=== PATIENT | female | born 1965 | race African-American/Black ===

== ENCOUNTER 2018-02-26 10:17 | Observation (INO) ==
[2018-02-26] MEDS ORDERED: ASPIRIN 325 MG TABLET PO STA (11:33)
[2018-02-26] MEDS ORDERED: ENOXAPARIN 100 MG/ML SYRINGE SUBCUT STA (11:33)
[2018-02-26 12:02] LABS: Basophils # 0.1 10*3/uL (0.0-0.2); Basophils % 0.5 % (0.0-0.8); Eosinophils % 0.4 % (0.00-10.9); Hematocrit 46.7 VOL% (35.7-47.0); Hemoglobin 14.5 GM/DL (12.0-16.0); Immature Granulocytes % 0.3 %; Immature Granulocytes Absolute 0.03 #; Lymphocytes # 2.5 10*3/uL (1.4-4.0); Lymphocytes % 25.5 % (21.3-54.2); Mean Corpuscular Hemoglobin 27 PG (27-34); Mean Corpuscular Volume 85.8 FL (87-102); Mean Platelet Volume 12.3 FL (9.6-12.0); Monocytes # 0.5 10*3/uL (0.11-0.8); Monocytes % 5.4 % (1.7-12.7); Neutrophils # 6.7 10*3/uL (1.4-7.4); Neutrophils % 67.9 % (38.7-73.9); Platelet Count 194 T/CUMM (130-400); Red Blood Count 5.44 MC/CUMM (3.8-5.5); Red Cell Distribution Width 16.1 % (9.3-17.3); White Blood Count 9.8 T/CUMM (4-12)
[2018-02-26 12:38] LABS: Albumin 3.3 G/DL (3.4-5.0); Bilirubin,Total 0.4 MG/DL (0.2-1.0); Calcium 8.9 MG/DL (8.5-10.1); Osmolality,Calculated 290.5 MOS/KG (273-304); Potassium 4.8 MMOL/L (3.5-5.1); Total Protein 7.4 G/DL (6.4-8.3)
[2018-02-26] MEDS ORDERED: ACETAMINOPHEN 325 MG TABLET PO PRN (13:06)
[2018-02-26] MEDS ORDERED: NITROGLYCERIN SL 0.4 MG TABLET SL PRN (13:06)
[2018-02-26] MEDS ORDERED: ZALEPLON 5 MG CAPSULE PO PRN (13:06)
[2018-02-26] MEDS ORDERED: ONDANSETRON 4 MG/2 ML VIAL IV PRN (13:06)
[2018-02-26] MEDS ORDERED: BISACODYL 5 MG TABLET PO PRN (13:06)
[2018-02-26] MEDS ORDERED: HEPARIN/NACL 0.9% 2 UNITS/ML 0 ML IV ONE ×2 (13:49→13:50)
[2018-02-26] MEDS ORDERED: HEPARIN/NACL 0.9% 2 UNITS/ML 500 ML IV ONE ×2 (13:51→14:03)
[2018-02-26] MEDS ORDERED: LIDOCAINE 1% 20 ML VIAL ONE (14:03)
[2018-02-26] MEDS ORDERED: VERAPAMIL 5 MG/2 ML VIAL ONE (14:05)
[2018-02-26] MEDS ORDERED: fentaNYL 100 MCG/2 ML VIAL ONE (14:05)
[2018-02-26] MEDS ORDERED: NITROGLYCERIN DRIP 50 MG/250 ML BOTTLE IV ONE (14:05)
[2018-02-26] MEDS ORDERED: MIDAZOLAM 2 MG/2 ML VIAL ONE (14:05)
[2018-02-26] MEDS ORDERED: LABETALOL 20 MG/4 ML SYRINGE IV ONE (14:32)
[2018-02-26] MEDS ORDERED: GLUCAGON 1 MG VIAL IM PRN (14:57)
[2018-02-26] MEDS ORDERED: DEXTROSE 50% 25 GM/50 ML VIAL IV PRN (14:57)
[2018-02-26] MEDS ORDERED: MAGNESIUM HYDROXIDE SUSP 30 ML UDCUP PO PRN (16:18)
[2018-02-26] MEDS ORDERED: diphenhydrAMINE CAP 25 MG CAPSULE PO PRN (16:18)
[2018-02-26] MEDS: POTASSIUM CHLORIDE 20 MEQ TABLET PO SCH ×2 (16:24→21:17)
[2018-02-26] MEDS: LISINOPRIL/HCTZ 20-12.5 MG TABLET PO SCH (16:25)
[2018-02-26] MEDS: PANTOPRAZOLE 40 MG TABLET PO SCH (16:25)
[2018-02-26] MEDS: GABAPENTIN 600 MG TABLET PO SCH ×2 (16:25→21:17)
[2018-02-26] MEDS: ISOSORBIDE MONONITRATE 30 MG TABLET PO SCH (18:37)
[2018-02-26] MEDS ORDERED: METOPROLOL TARTRATE 50 MG TABLET PO SCH (21:00)
[2018-02-26] MEDS: INSULIN REGULAR ** CONC 500 UNIT/ML ** 20 ML VIAL SUBCUT SCH (21:25)
[2018-02-27 08:12] LABS: Basophils % 0.6 % (0.0-0.8); Eosinophils # 0.1 10*3/uL (0.0-0.87); Eosinophils % 1.6 % (0.00-10.9); Hematocrit 43.1 VOL% (35.7-47.0); Hemoglobin 13.3 GM/DL (12.0-16.0); Immature Granulocytes % 0.3 %; Immature Granulocytes Absolute 0.02 #; Lymphocytes # 3.7 10*3/uL (1.4-4.0); Lymphocytes % 52.3 % (21.3-54.2); Mean Corpuscular HGB Conc 30.9 GM/DL (32-36); Mean Corpuscular Hemoglobin 27 PG (27-34); Mean Corpuscular Volume 88.5 FL (87-102); Mean Platelet Volume 11.8 FL (9.6-12.0); Monocytes # 0.4 10*3/uL (0.11-0.8); Monocytes % 6.2 % (1.7-12.7); Neutrophils # 2.8 10*3/uL (1.4-7.4); Platelet Count 178 T/CUMM (130-400); Red Blood Count 4.87 MC/CUMM (3.8-5.5); Red Cell Distribution Width 16.2 % (9.3-17.3); White Blood Count 7.1 T/CUMM (4-12)
[2018-02-27] MEDS: INSULIN REGULAR ** CONC 500 UNIT/ML ** 20 ML VIAL SUBCUT SCH ×2 (08:14→11:48)
[2018-02-27] MEDS: ISOSORBIDE MONONITRATE 30 MG TABLET PO SCH (08:18)
[2018-02-27] MEDS: POTASSIUM CHLORIDE 20 MEQ TABLET PO SCH ×2 (08:19→14:37)
[2018-02-27] MEDS: GABAPENTIN 600 MG TABLET PO SCH ×2 (08:19→14:37)
[2018-02-27] MEDS: LISINOPRIL/HCTZ 20-12.5 MG TABLET PO SCH (08:20)
[2018-02-27] MEDS: PANTOPRAZOLE 40 MG TABLET PO SCH (08:20)
[2018-02-27 08:25] LABS: PT Patient Result 10.2 SECS
[2018-02-27 08:40] LABS: Calcium 8.3 MG/DL (8.5-10.1); Osmolality,Calculated 293.8 MOS/KG (273-304); Potassium 3.5 MMOL/L (3.5-5.1)
[2018-02-27] MEDS ORDERED: ROSUVASTATIN 20 MG TABLET PO SCH (09:00)
[2018-02-27] MEDS ORDERED: predniSONE 10 MG TABLET PO SCH (09:00)
[2018-02-27] MEDS ORDERED: FUROSEMIDE 80 MG TABLET PO SCH (09:00)
[2018-02-27] MEDS ORDERED: ASPIRIN EC 81 MG TABLET PO SCH (09:00)
[2018-02-27] MEDS ORDERED: CLOPIDOGREL 75 MG TABLET PO SCH (10:00)
[2018-02-27] MEDS ORDERED: METOPROLOL TARTRATE 50 MG TABLET PO SCH (10:00)
[2018-02-27 11:59] VITALS: BP 117/73
[2018-03-04] MEDS ORDERED: Exenatide Microspheres [Bydureon] 2 MG SUBCUT SCH (13:13)
== END 2018-02-27 14:54 | disposition home or self-care (01) ==
LOC: N.EDINP 10:17 → N.ED 10:17 → N.TELEN 13:51
PROVIDERS: ADMIT Internal Medicine Cardiovascular Disease; ATTEND Internal Medicine Cardiovascular Disease
PROC: CLCCHCL (ICD-10-PCS; 2018-02-26 15:45)

== ENCOUNTER 2022-04-21 23:30 | Inpatient (IN) ==
[2022-04-22] MEDS ORDERED: ONDANSETRON 4 MG/2 ML VIAL IV PRN (02:41)
[2022-04-22] MEDS ORDERED: ALBUTEROL 2.5 MG/3 ML NEB RESP TX PRN (02:41)
[2022-04-22 03:03] LABS: Bilirubin,Urine Negative (Negative); Blood, Urine Large mg/dL (Negative); Glucose,Urine (UA) 500 mg/dL (Negative); Ketones,Urine Negative (Negative); Nitrite,Urine Negative (Negative); Protein,Urine 30 mg/dL (Negative); Urine Appearance Clear (Clear); Urine Color Yellow (Yellow); Urine Specific Gravity 1.015 (1.001-1.035)
[2022-04-22 03:05] LABS: Bacteria,Urine Occasional /HPF (Few); Hyaline Casts,Urine 3 /LPF (0-3); Mucus,Urine Occasional /LPF (Occasional); RBC,Urine 27 /HPF (0-4); Squamous Epithelial Cell,Urine Occasional /HPF (0-10)
[2022-04-22 03:25] LABS: INR 1.1; PT Patient Result 11.9 SECS (10.1-12.1)
[2022-04-22 03:27] LABS: Arterial Base Excess iSTAT 0 MMOL/L (-2.5-2.5); Arterial O2 Saturation iSTAT 99 % (95-100); Arterial PCO2 iSTAT 49 MM HG (35-48); Arterial PO2 iSTAT 153 MM HG (80-95); Arterial Total CO2 iSTAT 28 MMO/L (23-27); Arterial pH iSTAT 7.332 (7.35-7.45)
[2022-04-22] MEDS ORDERED: PIPERACILLIN/TAZOBACTAM 3,375 MG in SODIUM CHLORIDE 0.9% 100 ML IV ONE (03:30)
[2022-04-22 03:38] LABS: Basophils % 0.2 % (0.0-0.8); Hematocrit 39.6 VOL% (35.7-47.0); Hemoglobin 11.6 GM/DL (12.0-16.0); Immature Granulocytes % 0.6 %; Immature Granulocytes Absolute 0.07 #; Lymphocytes # 0.7 10*3/uL (1.4-4.0); Lymphocytes % 5.5 % (21.3-54.2); Mean Corpuscular HGB Conc 29.3 GM/DL (32-36); Mean Corpuscular Volume 84.1 FL (87-102); Mean Platelet Volume 11.5 FL (9.6-12.0); Monocytes # 0.3 10*3/uL (0.11-0.8); Monocytes % 2.1 % (1.7-12.7); Neutrophils % 91.6 % (38.7-73.9); Platelet Count 233 T/CUMM (130-400); Red Blood Count 4.71 MC/CUMM (3.8-5.5); Red Cell Distribution Width 19.3 % (9.3-17.3); White Blood Count 12.6 T/CUMM (4-12)
[2022-04-22 03:40] LABS: Albumin 2.7 G/DL (3.4-5.0); Bilirubin,Total 0.4 MG/DL (0.20-1.00); Calcium 8.8 MG/DL (8.5-10.1); Osmolality,Calculated 286.4 MOS/KG (273-304); Potassium 5.7 MMOL/L (3.5-5.1); Total Protein 7.5 G/DL (6.4-8.2)
[2022-04-22 03:44] LABS: Band Neutrophils 1 % (0-10); Lymphocytes 3 % (20-55); Total Cells Counted 100
[2022-04-22 03:45] LABS: Platelet Estimate Adequate
[2022-04-22] MEDS ORDERED: SODIUM POLYSTYRENE SULFATE 15 GM/60 ML BOTTLE PO ONE (05:00)
[2022-04-22] MEDS: PANTOPRAZOLE 40 MG VIAL IV SCH (05:17)
[2022-04-22] MEDS ORDERED: GLUCAGON 1 MG VIAL IM PRN (05:46)
[2022-04-22] MEDS ORDERED: DEXTROSE 10% 250 ML BAG IV PRN (06:10)
[2022-04-22] MEDS ORDERED: INSULIN LISPRO 100 UNIT/ML SUBCUT SCH (06:30)
[2022-04-22] MEDS: ENOXAPARIN 120 MG/0.8 ML SYRINGE SUBCUT SCH ×2 (06:38→17:30)
[2022-04-22] MEDS: SODIUM CHLORIDE 0.9% 1,000 ML IV SCH ×2 (06:44→17:05)
[2022-04-22] MEDS: ALBUTEROL/IPRATROPIUM 3 ML NEB RESP TX SCH ×3 (07:15→18:50)
[2022-04-22] MEDS ORDERED: MIDAZOLAM 2 MG/2 ML VIAL ONE (07:17)
[2022-04-22] MEDS ORDERED: MIDAZOLAM 2 MG/2 ML VIAL IV ONE (07:19)
[2022-04-22] MEDS ORDERED: MAGNESIUM SULF RIDER 2 GM/50 ML PREMIX IV PRN (08:15)
[2022-04-22 08:42] LABS: Calcium 8.3 MG/DL (8.5-10.1); Osmolality,Calculated 292.1 MOS/KG (273-304); Potassium 5.6 MMOL/L (3.5-5.1)
[2022-04-22] MEDS: VANCOMYCIN INJ 2,000 MG in SODIUM CHLORIDE 0.9% 500 ML IV SCH (08:54)
[2022-04-22] MEDS ORDERED: ENOXAPARIN 40 MG/0.4 ML SYRINGE SUBCUT SCH (09:00)
[2022-04-22 09:21] LABS: Calcium 8.3 MG/DL (8.5-10.1); Osmolality,Calculated 295.2 MOS/KG (273-304); Potassium 4.7 MMOL/L (3.5-5.1)
[2022-04-22] MEDS: ASPIRIN EC 325 MG TABLET PO SCH (09:38)
[2022-04-22] MEDS: CLOPIDOGREL 75 MG TABLET PO SCH (09:44)
[2022-04-22 09:58] LABS: Arterial Base Excess iSTAT -1 MMOL/L (-2.5-2.5); Arterial Bicarbonate iSTAT 26.3 MMOL/L (20-26); Arterial O2 Saturation iSTAT 98 % (95-100); Arterial PCO2 iSTAT 56 MM HG (35-48); Arterial PO2 iSTAT 125 MM HG (80-95); Arterial Total CO2 iSTAT 28 MMO/L (23-27); Arterial pH iSTAT 7.283 (7.35-7.45)
[2022-04-22] MEDS: INSULIN LISPRO 100 UNIT/ML SUBCUT SCH ×2 (11:24→18:26)
[2022-04-22] MEDS: PIPERACILLIN/TAZOBACTAM 3,375 MG in SODIUM CHLORIDE 0.9% 100 ML IV SCH ×2 (11:30→19:28)
[2022-04-22] MEDS: MIDAZOLAM 100 MG in SODIUM CHLORIDE 0.9% 80 ML IV PRN ×2 (13:17→23:56)
[2022-04-22] MEDS ORDERED: INSULIN LISPRO 100 UNIT/ML SUBCUT ONE (13:57)
[2022-04-22] MEDS: INSULIN GLARGINE 100 UNIT/ML SUBCUT SCH (14:05)
[2022-04-22] MEDS: ROSUVASTATIN 20 MG TABLET PO SCH (21:05)
[2022-04-23] MEDS: INSULIN LISPRO 100 UNIT/ML SUBCUT SCH ×4 (00:15→17:14)
[2022-04-23] MEDS: ALBUTEROL/IPRATROPIUM 3 ML NEB RESP TX SCH ×4 (00:20→19:08)
[2022-04-23 01:37] LABS: Arterial Base Excess iSTAT 2 MMOL/L (-2.5-2.5); Arterial Bicarbonate iSTAT 27.4 MMOL/L (20-26); Arterial O2 Saturation iSTAT 99 % (95-100); Arterial PCO2 iSTAT 45 MM HG (35-48); Arterial PO2 iSTAT 120 MM HG (80-95); Arterial Total CO2 iSTAT 29 MMO/L (23-27); Arterial pH iSTAT 7.395 (7.35-7.45)
[2022-04-23] MEDS ORDERED: INSULIN REGULAR 100 UNIT/ML ONE (02:20)
[2022-04-23] MEDS: PANTOPRAZOLE 40 MG VIAL IV SCH (02:23)
[2022-04-23] MEDS ORDERED: INSULIN REGULAR 100 UNIT/ML IV ONE (03:00)
[2022-04-23] MEDS: PIPERACILLIN/TAZOBACTAM 3,375 MG in SODIUM CHLORIDE 0.9% 100 ML IV SCH ×3 (03:55→19:37)
[2022-04-23] MEDS: SODIUM CHLORIDE 0.9% 1,000 ML IV SCH ×2 (03:55→13:47)
[2022-04-23] MEDS: ENOXAPARIN 120 MG/0.8 ML SYRINGE SUBCUT SCH (04:37)
[2022-04-23 05:31] LABS: Alanine Aminotransferase 32 U/L (13-56); Albumin 2.3 G/DL (3.4-5.0); Alkaline Phosphatase 62 U/L (45-117); Aspartate Amino Transferase 71 U/L (0-37); Bilirubin,Indirect 0.3 MG/DL (0.0-1.0); Bilirubin,Total < 0.39 MG/DL (0.20-1.00); Blood Urea Nitrogen 48 MG/DL (7-18); Carbon Dioxide 26 MMOL/L (21-32); Chloride 109 MMOL/L (98-107); Glucose 331 MG/DL (74-106); Sodium 143 MMOL/L (136-145); Total Protein 6.6 G/DL (6.4-8.2)
[2022-04-23 05:33] LABS: Alanine Aminotransferase 35 U/L (13-56); Albumin 2.3 G/DL (3.4-5.0); Alkaline Phosphatase 65 U/L (45-117); Aspartate Amino Transferase 72 U/L (0-37); Bilirubin,Total < 0.39 MG/DL (0.20-1.00); Blood Urea Nitrogen 49 MG/DL (7-18); Calcium 7.7 MG/DL (8.5-10.1); Carbon Dioxide 25 MMOL/L (21-32); Chloride 109 MMOL/L (98-107); Glucose 326 MG/DL (74-106); Potassium 4.1 MMOL/L (3.5-5.1); Sodium 143 MMOL/L (136-145); Total Protein 5.8 G/DL (6.4-8.2)
[2022-04-23 06:14] LABS: Arterial Base Excess iSTAT 2 MMOL/L (-2.5-2.5); Arterial Bicarbonate iSTAT 27.6 MMOL/L (20-26); Arterial O2 Saturation iSTAT 99 % (95-100); Arterial PCO2 iSTAT 48 MM HG (35-48); Arterial PO2 iSTAT 135 MM HG (80-95); Arterial Total CO2 iSTAT 29 MMO/L (23-27); Arterial pH iSTAT 7.372 (7.35-7.45)
[2022-04-23 07:28] LABS: Basophils % 0.2 % (0.0-0.8); Eosinophils % 0.1 % (0.00-10.9); Hematocrit 30.4 VOL% (35.7-47.0); Hemoglobin 8.9 GM/DL (12.0-16.0); Immature Granulocytes % 0.4 %; Immature Granulocytes Absolute 0.04 #; Lymphocytes # 1.5 10*3/uL (1.4-4.0); Mean Corpuscular HGB Conc 29.3 GM/DL (32-36); Mean Corpuscular Volume 84.7 FL (87-102); Mean Platelet Volume 11.1 FL (9.6-12.0); Monocytes # 0.6 10*3/uL (0.11-0.8); Monocytes % 5.8 % (1.7-12.7); Neutrophils % 78.5 % (38.7-73.9); Platelet Count 195 T/CUMM (130-400); Red Blood Count 3.59 MC/CUMM (3.8-5.5); Red Cell Distribution Width 19.6 % (9.3-17.3); White Blood Count 10.2 T/CUMM (4-12)
[2022-04-23] MEDS: ASPIRIN EC 325 MG TABLET PO SCH (08:50)
[2022-04-23] MEDS: INSULIN GLARGINE 100 UNIT/ML SUBCUT SCH ×2 (08:51→20:12)
[2022-04-23] MEDS: CLOPIDOGREL 75 MG TABLET PO SCH (08:51)
[2022-04-23] MEDS: MIDAZOLAM 100 MG in SODIUM CHLORIDE 0.9% 80 ML IV PRN ×2 (08:54→17:21)
[2022-04-23] MEDS: VANCOMYCIN INJ 2,000 MG in SODIUM CHLORIDE 0.9% 500 ML IV SCH (08:56)
[2022-04-23] MEDS: carvediloL 3.125 MG TABLET PO SCH (20:12)
[2022-04-23] MEDS: ROSUVASTATIN 20 MG TABLET PO SCH (20:12)
[2022-04-24] MEDS: ALBUTEROL/IPRATROPIUM 3 ML NEB RESP TX SCH ×4 (00:08→19:17)
[2022-04-24] MEDS: INSULIN LISPRO 100 UNIT/ML SUBCUT SCH ×5 (00:24→19:30)
[2022-04-24] MEDS: SODIUM CHLORIDE 0.9% 1,000 ML IV SCH ×3 (00:25→20:00)
[2022-04-24] MEDS: PIPERACILLIN/TAZOBACTAM 3,375 MG in SODIUM CHLORIDE 0.9% 100 ML IV SCH ×3 (03:12→21:02)
[2022-04-24] MEDS: PANTOPRAZOLE 40 MG VIAL IV SCH (03:12)
[2022-04-24] MEDS: MIDAZOLAM 100 MG in SODIUM CHLORIDE 0.9% 80 ML IV PRN ×3 (03:13→22:16)
[2022-04-24 04:10] LABS: Arterial Base Excess iSTAT 2 MMOL/L (-2.5-2.5); Arterial Bicarbonate iSTAT 29.6 MMOL/L (20-26); Arterial O2 Saturation iSTAT 99 % (95-100); Arterial PCO2 iSTAT 64 MM HG (35-48); Arterial PO2 iSTAT 162 MM HG (80-95); Arterial Total CO2 iSTAT 32 MMO/L (23-27); Arterial pH iSTAT 7.276 (7.35-7.45)
[2022-04-24 05:20] LABS: Alanine Aminotransferase 39 U/L (13-56); Albumin 2.2 G/DL (3.4-5.0); Alkaline Phosphatase 77 U/L (45-117); Aspartate Amino Transferase 74 U/L (0-37); Bilirubin,Total < 0.39 MG/DL (0.20-1.00); Blood Urea Nitrogen 39 MG/DL (7-18); Calcium 7.8 MG/DL (8.5-10.1); Carbon Dioxide 28 MMOL/L (21-32); Chloride 115 MMOL/L (98-107); Glucose 282 MG/DL (74-106); Osmolality,Calculated 308.6 MOS/KG (273-304); Sodium 146 MMOL/L (136-145); Total Protein 6.4 G/DL (6.4-8.2)
[2022-04-24 05:21] LABS: Phosphorous 2.5 MG/DL (2.5-4.9)
[2022-04-24 05:30] LABS: Basophils % 0.4 % (0.0-0.8); Eosinophils # 0.1 10*3/uL (0.0-0.87); Eosinophils % 0.7 % (0.00-10.9); Hematocrit 29.3 VOL% (35.7-47.0); Hemoglobin 8.5 GM/DL (12.0-16.0); Immature Granulocytes % 1.2 %; Lymphocytes # 1.7 10*3/uL (1.4-4.0); Lymphocytes % 20.8 % (21.3-54.2); Mean Corpuscular Volume 86.4 FL (87-102); Mean Platelet Volume 11.3 FL (9.6-12.0); Monocytes # 0.7 10*3/uL (0.11-0.8); Monocytes % 8.9 % (1.7-12.7); Platelet Count 207 T/CUMM (130-400); Red Blood Count 3.39 MC/CUMM (3.8-5.5); Red Cell Distribution Width 19.8 % (9.3-17.3); White Blood Count 8.4 T/CUMM (4-12)
[2022-04-24 05:49] LABS: Hypochromia 1+
[2022-04-24 05:50] LABS: Microcytosis 1+; Platelet Estimate Normal; Polychromasia Slight
[2022-04-24 06:19] LABS: Calcium 7.6 MG/DL (8.5-10.1); Osmolality,Calculated 308.6 MOS/KG (273-304); Potassium 5.1 MMOL/L (3.5-5.1)
[2022-04-24 06:21] LABS: Risk Ratio 3.22; VLDL Cholesterol 34.8 MG/DL
[2022-04-24] MEDS: INSULIN GLARGINE 100 UNIT/ML SUBCUT SCH ×3 (08:10→21:02)
[2022-04-24] MEDS: carvediloL 3.125 MG TABLET PO SCH ×2 (08:10→21:02)
[2022-04-24] MEDS: ENOXAPARIN 40 MG/0.4 ML SYRINGE SUBCUT SCH (08:10)
[2022-04-24] MEDS: CLOPIDOGREL 75 MG TABLET PO SCH (08:10)
[2022-04-24] MEDS: ASPIRIN EC 325 MG TABLET PO SCH (08:10)
[2022-04-24] MEDS: VANCOMYCIN INJ 2,000 MG in SODIUM CHLORIDE 0.9% 500 ML IV SCH (08:12)
[2022-04-24] MEDS: ASPIRIN 325 MG TABLET NG SCH (10:58)
[2022-04-24] MEDS: ROSUVASTATIN 20 MG TABLET PO SCH (21:02)
[2022-04-24] MEDS: hydrALAZINE 20 MG/1 ML VIAL IV PRN (22:20)
[2022-04-25] MEDS: ALBUTEROL/IPRATROPIUM 3 ML NEB RESP TX SCH ×4 (01:06→19:32)
[2022-04-25] MEDS: INSULIN LISPRO 100 UNIT/ML SUBCUT SCH ×5 (01:23→18:14)
[2022-04-25] MEDS: PANTOPRAZOLE 40 MG VIAL IV SCH (04:15)
[2022-04-25] MEDS: PIPERACILLIN/TAZOBACTAM 3,375 MG in SODIUM CHLORIDE 0.9% 100 ML IV SCH ×3 (04:16→21:05)
[2022-04-25 04:29] LABS: Arterial Base Excess iSTAT 1 MMOL/L (-2.5-2.5); Arterial Bicarbonate iSTAT 22.8 MMOL/L (20-26); Arterial O2 Saturation iSTAT 96 % (95-100); Arterial PCO2 iSTAT 27 MM HG (35-48); Arterial PO2 iSTAT 69 MM HG (80-95); Arterial Total CO2 iSTAT 24 MMO/L (23-27); Arterial pH iSTAT 7.534 (7.35-7.45)
[2022-04-25 05:36] LABS: Basophils % 0.4 % (0.0-0.8); Eosinophils # 0.1 10*3/uL (0.0-0.87); Eosinophils % 1.4 % (0.00-10.9); Hematocrit 29.3 VOL% (35.7-47.0); Hemoglobin 8.7 GM/DL (12.0-16.0); Immature Granulocytes % 1.1 %; Immature Granulocytes Absolute 0.11 #; Lymphocytes # 2.2 10*3/uL (1.4-4.0); Lymphocytes % 22.8 % (21.3-54.2); Mean Corpuscular HGB Conc 29.7 GM/DL (32-36); Mean Corpuscular Volume 83.2 FL (87-102); Mean Platelet Volume 11.2 FL (9.6-12.0); Monocytes # 0.8 10*3/uL (0.11-0.8); Monocytes % 8.2 % (1.7-12.7); NRBC # 0.04 10*3/uL; Neutrophils % 66.1 % (38.7-73.9); Platelet Count 207 T/CUMM (130-400); Red Blood Count 3.52 MC/CUMM (3.8-5.5); Red Cell Distribution Width 19.5 % (9.3-17.3); White Blood Count 9.8 T/CUMM (4-12)
[2022-04-25 05:55] LABS: Calcium 8.1 MG/DL (8.5-10.1); Osmolality,Calculated 304.1 MOS/KG (273-304)
[2022-04-25] MEDS: SODIUM CHLORIDE 0.9% 1,000 ML IV SCH (06:22)
[2022-04-25] MEDS: MIDAZOLAM 100 MG in SODIUM CHLORIDE 0.9% 80 ML IV PRN ×2 (08:00→17:10)
[2022-04-25] MEDS: ENOXAPARIN 40 MG/0.4 ML SYRINGE SUBCUT SCH (08:27)
[2022-04-25] MEDS: ASPIRIN 325 MG TABLET NG SCH (08:31)
[2022-04-25] MEDS: carvediloL 6.25 MG TABLET NG SCH ×2 (08:31→21:06)
[2022-04-25] MEDS: CLOPIDOGREL 75 MG TABLET PO SCH (08:31)
[2022-04-25] MEDS: INSULIN GLARGINE 100 UNIT/ML SUBCUT SCH ×2 (08:32→21:06)
[2022-04-25] MEDS: FUROSEMIDE 40 MG/4 ML VIAL IV SCH ×2 (09:50→18:13)
[2022-04-25] MEDS: ROSUVASTATIN 20 MG TABLET PO SCH (21:06)
[2022-04-26] MEDS: ALBUTEROL/IPRATROPIUM 3 ML NEB RESP TX SCH ×4 (00:12→19:08)
[2022-04-26] MEDS: INSULIN LISPRO 100 UNIT/ML SUBCUT SCH ×4 (00:21→18:23)
[2022-04-26] MEDS: MIDAZOLAM 100 MG in SODIUM CHLORIDE 0.9% 80 ML IV PRN ×3 (02:43→21:14)
[2022-04-26 03:18] LABS: Arterial Base Excess iSTAT 4 MMOL/L (-2.5-2.5); Arterial Bicarbonate iSTAT 27.3 MMOL/L (20-26); Arterial O2 Saturation iSTAT 94 % (95-100); Arterial PCO2 iSTAT 34 MM HG (35-48); Arterial PO2 iSTAT 62 MM HG (80-95); Arterial Total CO2 iSTAT 28 MMO/L (23-27); Arterial pH iSTAT 7.509 (7.35-7.45)
[2022-04-26] MEDS: PANTOPRAZOLE 40 MG VIAL IV SCH (04:00)
[2022-04-26 05:51] LABS: Basophils % 0.4 % (0.0-0.8); Eosinophils # 0.3 10*3/uL (0.0-0.87); Eosinophils % 3.2 % (0.00-10.9); Hematocrit 31.3 VOL% (35.7-47.0); Hemoglobin 9.2 GM/DL (12.0-16.0); Immature Granulocytes % 1.1 %; Immature Granulocytes Absolute 0.11 #; Lymphocytes # 2.8 10*3/uL (1.4-4.0); Lymphocytes % 26.9 % (21.3-54.2); Mean Corpuscular HGB Conc 29.4 GM/DL (32-36); Mean Corpuscular Volume 85.1 FL (87-102); Mean Platelet Volume 11.6 FL (9.6-12.0); Monocytes # 0.7 10*3/uL (0.11-0.8); Monocytes % 6.4 % (1.7-12.7); NRBC # 0.03 10*3/uL; Platelet Count 255 T/CUMM (130-400); Red Blood Count 3.68 MC/CUMM (3.8-5.5); Red Cell Distribution Width 19.7 % (9.3-17.3); White Blood Count 10.3 T/CUMM (4-12)
[2022-04-26] MEDS: PIPERACILLIN/TAZOBACTAM 3,375 MG in SODIUM CHLORIDE 0.9% 100 ML IV SCH ×2 (05:57→13:40)
[2022-04-26 06:04] LABS: Calcium 8.4 MG/DL (8.5-10.1); Osmolality,Calculated 305.4 MOS/KG (273-304); Potassium 3.6 MMOL/L (3.5-5.1)
[2022-04-26] MEDS: hydrALAZINE 20 MG/1 ML VIAL IV PRN (06:04)
[2022-04-26] MEDS: FUROSEMIDE 40 MG/4 ML VIAL IV SCH ×2 (07:56→15:15)
[2022-04-26] MEDS: ENOXAPARIN 40 MG/0.4 ML SYRINGE SUBCUT SCH (08:59)
[2022-04-26] MEDS: carvediloL 6.25 MG TABLET NG SCH (08:59)
[2022-04-26] MEDS: CLOPIDOGREL 75 MG TABLET PO SCH (08:59)
[2022-04-26] MEDS: POTASSIUM CHLORIDE 20 MEQ TABLET PO PRN ×2 (08:59→11:25)
[2022-04-26] MEDS: ASPIRIN 325 MG TABLET NG SCH (08:59)
[2022-04-26] MEDS: INSULIN GLARGINE 100 UNIT/ML SUBCUT SCH ×2 (08:59→22:48)
[2022-04-26] MEDS ORDERED: SALIVA SUBSTITUTE SPRAY 60 ML CAN SWISH/SPIT PRN (10:42)
[2022-04-26] MEDS: amLODIPine 5 MG TABLET PO SCH (12:25)
[2022-04-26] MEDS: SPIRONOLACTONE 25 MG TABLET PO SCH (12:25)
[2022-04-26] MEDS: SALIVA SUBSTITUTE SPRAY 60 ML CAN SWISH/SPIT PRN (12:25)
[2022-04-26] MEDS: ROSUVASTATIN 20 MG TABLET PO SCH (21:01)
[2022-04-26] MEDS: carvediloL 12.5 MG TABLET PO SCH (21:02)
[2022-04-27] MEDS: ALBUTEROL/IPRATROPIUM 3 ML NEB RESP TX SCH ×4 (00:08→20:17)
[2022-04-27] MEDS: PIPERACILLIN/TAZOBACTAM 3,375 MG in SODIUM CHLORIDE 0.9% 100 ML IV SCH ×4 (01:30→22:15)
[2022-04-27] MEDS: INSULIN LISPRO 100 UNIT/ML SUBCUT SCH ×4 (01:31→18:24)
[2022-04-27] MEDS: PANTOPRAZOLE 40 MG VIAL IV SCH (04:08)
[2022-04-27 04:20] LABS: Arterial Base Excess iSTAT 5 MMOL/L (-2.5-2.5); Arterial O2 Saturation iSTAT 98 % (95-100); Arterial PCO2 iSTAT 42 MM HG (35-48); Arterial PO2 iSTAT 95 MM HG (80-95); Arterial Total CO2 iSTAT 30 MMO/L (23-27); Arterial pH iSTAT 7.453 (7.35-7.45)
[2022-04-27 06:08] LABS: Calcium 8.8 MG/DL (8.5-10.1); Osmolality,Calculated 303.7 MOS/KG (273-304); Phosphorous 4.2 MG/DL (2.5-4.9); Potassium 3.6 MMOL/L (3.5-5.1)
[2022-04-27 06:19] LABS: Platelet Estimate Adequate
[2022-04-27 06:21] LABS: Hypochromia 1+
[2022-04-27 06:23] LABS: Basophils % 0.3 % (0.0-0.8); Eosinophils # 0.3 10*3/uL (0.0-0.87); Eosinophils % 2.9 % (0.00-10.9); Hematocrit 32.5 VOL% (35.7-47.0); Hemoglobin 9.4 GM/DL (12.0-16.0); Immature Granulocytes % 1.8 %; Immature Granulocytes Absolute 0.17 #; Lymphocytes # 2.3 10*3/uL (1.4-4.0); Lymphocytes % 24.5 % (21.3-54.2); Mean Corpuscular HGB Conc 28.9 GM/DL (32-36); Mean Corpuscular Volume 84.9 FL (87-102); Mean Platelet Volume 11.7 FL (9.6-12.0); Monocytes # 0.7 10*3/uL (0.11-0.8); Monocytes % 7.3 % (1.7-12.7); NRBC # 0.08 10*3/uL; Neutrophils % 63.2 % (38.7-73.9); Platelet Count 306 T/CUMM (130-400); Red Blood Count 3.83 MC/CUMM (3.8-5.5); Red Cell Distribution Width 19.3 % (9.3-17.3); White Blood Count 9.2 T/CUMM (4-12)
[2022-04-27] MEDS: MIDAZOLAM 100 MG in SODIUM CHLORIDE 0.9% 80 ML IV PRN ×2 (06:47→16:16)
[2022-04-27] MEDS: SALIVA SUBSTITUTE SPRAY 60 ML CAN SWISH/SPIT PRN (07:20)
[2022-04-27] MEDS: INSULIN GLARGINE 100 UNIT/ML SUBCUT SCH ×2 (08:59→20:19)
[2022-04-27] MEDS: CLOPIDOGREL 75 MG TABLET PO SCH (09:00)
[2022-04-27] MEDS: ASPIRIN CHEW 81 MG TABLET PO SCH (09:00)
[2022-04-27] MEDS: ENOXAPARIN 40 MG/0.4 ML SYRINGE SUBCUT SCH (09:00)
[2022-04-27] MEDS: carvediloL 12.5 MG TABLET PO SCH ×2 (09:00→20:19)
[2022-04-27] MEDS: POTASSIUM CHLORIDE 20 MEQ TABLET PO PRN ×2 (09:00→11:30)
[2022-04-27] MEDS: amLODIPine 5 MG TABLET PO SCH (09:00)
[2022-04-27] MEDS: FUROSEMIDE 40 MG/4 ML VIAL IV SCH ×2 (09:01→15:40)
[2022-04-27] MEDS: SPIRONOLACTONE 25 MG TABLET PO SCH (09:01)
[2022-04-27] MEDS: ROSUVASTATIN 20 MG TABLET PO SCH (20:19)
[2022-04-28] MEDS: ALBUTEROL/IPRATROPIUM 3 ML NEB RESP TX SCH ×5 (00:16→23:26)
[2022-04-28] MEDS: INSULIN LISPRO 100 UNIT/ML SUBCUT SCH ×4 (00:16→18:00)
[2022-04-28] MEDS: PANTOPRAZOLE 40 MG VIAL IV SCH (02:19)
[2022-04-28] MEDS: MIDAZOLAM 100 MG in SODIUM CHLORIDE 0.9% 80 ML IV PRN ×2 (04:17→20:46)
[2022-04-28 05:10] LABS: Basophils % 0.3 % (0.0-0.8); Eosinophils # 0.2 10*3/uL (0.0-0.87); Eosinophils % 2.6 % (0.00-10.9); Hematocrit 30.8 VOL% (35.7-47.0); Hemoglobin 9.1 GM/DL (12.0-16.0); Immature Granulocytes % 2.9 %; Immature Granulocytes Absolute 0.27 #; Lymphocytes # 2.6 10*3/uL (1.4-4.0); Lymphocytes % 27.8 % (21.3-54.2); Mean Corpuscular HGB Conc 29.5 GM/DL (32-36); Mean Corpuscular Volume 84.2 FL (87-102); Mean Platelet Volume 11.6 FL (9.6-12.0); Monocytes # 0.8 10*3/uL (0.11-0.8); Monocytes % 8.7 % (1.7-12.7); NRBC # 0.08 10*3/uL; Neutrophils % 57.7 % (38.7-73.9); Platelet Count 308 T/CUMM (130-400); Red Blood Count 3.66 MC/CUMM (3.8-5.5); Red Cell Distribution Width 19.2 % (9.3-17.3); White Blood Count 9.4 T/CUMM (4-12)
[2022-04-28 05:21] LABS: Calcium 8.7 MG/DL (8.5-10.1); Osmolality,Calculated 302.7 MOS/KG (273-304); Potassium 3.7 MMOL/L (3.5-5.1)
[2022-04-28] MEDS: PIPERACILLIN/TAZOBACTAM 3,375 MG in SODIUM CHLORIDE 0.9% 100 ML IV SCH ×3 (06:21→22:50)
[2022-04-28] MEDS: ENOXAPARIN 40 MG/0.4 ML SYRINGE SUBCUT SCH (09:03)
[2022-04-28] MEDS: amLODIPine 5 MG TABLET PO SCH (09:03)
[2022-04-28] MEDS: CLOPIDOGREL 75 MG TABLET PO SCH (09:04)
[2022-04-28] MEDS: carvediloL 12.5 MG TABLET PO SCH ×2 (09:04→20:45)
[2022-04-28] MEDS: FUROSEMIDE 40 MG/4 ML VIAL IV SCH ×2 (09:04→20:44)
[2022-04-28] MEDS: SPIRONOLACTONE 25 MG TABLET PO SCH (09:04)
[2022-04-28] MEDS: ASPIRIN CHEW 81 MG TABLET PO SCH (09:04)
[2022-04-28] MEDS: INSULIN GLARGINE 100 UNIT/ML SUBCUT SCH ×2 (09:05→20:45)
[2022-04-28 10:00] LABS: Arterial Base Excess iSTAT 5 MMOL/L (-2.5-2.5); Arterial Bicarbonate iSTAT 30.7 MMOL/L (20-26); Arterial O2 Saturation iSTAT 90 % (95-100); Arterial PCO2 iSTAT 47 MM HG (35-48); Arterial PO2 iSTAT 58 MM HG (80-95); Arterial Total CO2 iSTAT 32 MMO/L (23-27); Arterial pH iSTAT 7.421 (7.35-7.45)
[2022-04-28] MEDS: ROSUVASTATIN 20 MG TABLET PO SCH (20:43)
[2022-04-29] MEDS: INSULIN LISPRO 100 UNIT/ML SUBCUT SCH ×5 (01:05→23:40)
[2022-04-29 03:52] LABS: ABG Base Excess 6.2 MMOL/L (-2.5-2.5); ABG HCO3 30.1 MMOL/L (20-26); ABG Oxygen Saturation 95.6 % (95-100); ABG PCO2 42.4 MM HG (35-48); ABG PH 7.466 (7.35-7.45); ABG PO2 81.7 MM HG (80-95); ABG TCO2 27.8 MMOL/L (23-27)
[2022-04-29] MEDS: PANTOPRAZOLE 40 MG VIAL IV SCH (03:56)
[2022-04-29] MEDS: ACETAMINOPHEN 325 MG TABLET PO PRN (04:02)
[2022-04-29 06:08] LABS: Basophils % 0.3 % (0.0-0.8); Eosinophils # 0.2 10*3/uL (0.0-0.87); Eosinophils % 1.6 % (0.00-10.9); Hematocrit 31.9 VOL% (35.7-47.0); Hemoglobin 9.3 GM/DL (12.0-16.0); Immature Granulocytes % 2.3 %; Immature Granulocytes Absolute 0.25 #; Lymphocytes # 2.6 10*3/uL (1.4-4.0); Lymphocytes % 24.2 % (21.3-54.2); Mean Corpuscular HGB Conc 29.2 GM/DL (32-36); Mean Corpuscular Volume 85.1 FL (87-102); Mean Platelet Volume 10.9 FL (9.6-12.0); Monocytes % 9.2 % (1.7-12.7); NRBC # 0.06 10*3/uL; Neutrophils % 62.4 % (38.7-73.9); Platelet Count 321 T/CUMM (130-400); Red Blood Count 3.75 MC/CUMM (3.8-5.5); Red Cell Distribution Width 19.1 % (9.3-17.3); White Blood Count 10.9 T/CUMM (4-12)
[2022-04-29 06:20] LABS: Calcium 8.8 MG/DL (8.5-10.1); Osmolality,Calculated 308.4 MOS/KG (273-304); Potassium 3.1 MMOL/L (3.5-5.1)
[2022-04-29] MEDS: MIDAZOLAM 100 MG in SODIUM CHLORIDE 0.9% 80 ML IV PRN (06:37)
[2022-04-29 06:51] LABS: Hypochromia Slight; Platelet Estimate Normal
[2022-04-29] MEDS: PIPERACILLIN/TAZOBACTAM 3,375 MG in SODIUM CHLORIDE 0.9% 100 ML IV SCH (06:51)
[2022-04-29] MEDS: ALBUTEROL/IPRATROPIUM 3 ML NEB RESP TX SCH ×4 (07:07→23:54)
[2022-04-29] MEDS: ASPIRIN CHEW 81 MG TABLET PO SCH (08:19)
[2022-04-29] MEDS: FUROSEMIDE 40 MG/4 ML VIAL IV SCH ×2 (08:20→20:29)
[2022-04-29] MEDS: ENOXAPARIN 40 MG/0.4 ML SYRINGE SUBCUT SCH (08:20)
[2022-04-29] MEDS: CLOPIDOGREL 75 MG TABLET PO SCH (08:20)
[2022-04-29] MEDS: SPIRONOLACTONE 25 MG TABLET PO SCH (08:21)
[2022-04-29] MEDS: carvediloL 12.5 MG TABLET PO SCH ×2 (08:21→20:29)
[2022-04-29] MEDS: amLODIPine 5 MG TABLET PO SCH (08:21)
[2022-04-29] MEDS: INSULIN GLARGINE 100 UNIT/ML SUBCUT SCH ×2 (08:22→20:29)
[2022-04-29] MEDS: POTASSIUM BICARB EFFERVESCENT 20 MEQ TAB.EFF PO SCH ×4 (08:27→15:40)
[2022-04-29] MEDS: FAMOTIDINE 8 MG/ML 50 ML/BOTTLE PO SCH ×2 (11:30→20:40)
[2022-04-29] MEDS: LEVOFLOXACIN 500 MG TABLET PO SCH (13:30)
[2022-04-29] MEDS: POTASSIUM CHLORIDE 20 MEQ TABLET PO SCH (18:37)
[2022-04-29] MEDS: ROSUVASTATIN 20 MG TABLET PO SCH (20:37)
[2022-04-30] MEDS: PANTOPRAZOLE 40 MG VIAL IV SCH (02:39)
[2022-04-30 04:16] LABS: ABG Base Excess 7.5 MMOL/L (-2.5-2.5); ABG HCO3 31.3 MMOL/L (20-26); ABG Oxygen Saturation 96.8 % (95-100); ABG PH 7.493 (7.35-7.45); ABG PO2 86.5 MM HG (80-95); ABG TCO2 28.8 MMOL/L (23-27)
[2022-04-30 04:47] LABS: Osmolality,Calculated 313.1 MOS/KG (273-304); Potassium 3.2 MMOL/L (3.5-5.1)
[2022-04-30 05:03] LABS: Basophils % 0.4 % (0.0-0.8); Eosinophils # 0.1 10*3/uL (0.0-0.87); Eosinophils % 0.9 % (0.00-10.9); Hematocrit 33.3 VOL% (35.7-47.0); Immature Granulocytes % 1.3 %; Immature Granulocytes Absolute 0.15 #; Lymphocytes # 2.9 10*3/uL (1.4-4.0); Lymphocytes % 25.3 % (21.3-54.2); Mean Corpuscular HGB Conc 29.1 GM/DL (32-36); Mean Corpuscular Volume 84.7 FL (87-102); Mean Platelet Volume 10.9 FL (9.6-12.0); Monocytes % 8.5 % (1.7-12.7); NRBC # 0.04 10*3/uL; Neutrophils % 63.6 % (38.7-73.9); Platelet Count 335 T/CUMM (130-400); Red Blood Count 3.93 MC/CUMM (3.8-5.5); White Blood Count 11.4 T/CUMM (4-12)
[2022-04-30 05:06] LABS: Hemoglobin 9.7 GM/DL (12.0-16.0)
[2022-04-30] MEDS: INSULIN LISPRO 100 UNIT/ML SUBCUT SCH ×3 (05:28→18:13)
[2022-04-30] MEDS: ALBUTEROL/IPRATROPIUM 3 ML NEB RESP TX SCH ×3 (07:05→19:16)
[2022-04-30] MEDS: FAMOTIDINE 8 MG/ML 50 ML/BOTTLE PO SCH (08:19)
[2022-04-30] MEDS: FUROSEMIDE 40 MG/4 ML VIAL IV SCH ×2 (08:19→09:20)
[2022-04-30] MEDS: ENOXAPARIN 40 MG/0.4 ML SYRINGE SUBCUT SCH (08:19)
[2022-04-30] MEDS: amLODIPine 5 MG TABLET PO SCH (08:20)
[2022-04-30] MEDS: POTASSIUM BICARB EFFERVESCENT 20 MEQ TAB.EFF PO SCH ×6 (08:20→18:10)
[2022-04-30] MEDS: LEVOFLOXACIN 500 MG TABLET PO SCH (08:20)
[2022-04-30] MEDS: ASPIRIN CHEW 81 MG TABLET PO SCH (08:20)
[2022-04-30] MEDS: carvediloL 12.5 MG TABLET PO SCH ×2 (08:20→20:09)
[2022-04-30] MEDS: CLOPIDOGREL 75 MG TABLET PO SCH (08:21)
[2022-04-30] MEDS: INSULIN GLARGINE 100 UNIT/ML SUBCUT SCH ×2 (08:21→20:09)
[2022-04-30] MEDS: SPIRONOLACTONE 25 MG TABLET PO SCH (08:22)
[2022-04-30] MEDS: MEROPENEM 500 MG in SODIUM CHLORIDE 0.9% 100 ML IV SCH ×2 (11:50→19:22)
[2022-04-30] MEDS: MIDAZOLAM 100 MG in SODIUM CHLORIDE 0.9% 80 ML IV PRN (19:20)
[2022-04-30] MEDS: ROSUVASTATIN 20 MG TABLET PO SCH (20:09)
[2022-05-01] MEDS: hydrALAZINE 20 MG/1 ML VIAL IV PRN (00:10)
[2022-05-01] MEDS: INSULIN LISPRO 100 UNIT/ML SUBCUT SCH ×4 (00:11→18:00)
[2022-05-01] MEDS: ALBUTEROL/IPRATROPIUM 3 ML NEB RESP TX SCH ×4 (00:30→18:48)
[2022-05-01] MEDS: PANTOPRAZOLE 40 MG VIAL IV SCH (02:28)
[2022-05-01] MEDS: MEROPENEM 500 MG in SODIUM CHLORIDE 0.9% 100 ML IV SCH (02:32)
[2022-05-01 03:28] LABS: ABG Base Excess 7.7 MMOL/L (-2.5-2.5); ABG HCO3 31.4 MMOL/L (20-26); ABG Oxygen Saturation 95.8 % (95-100); ABG PCO2 36.4 MM HG (35-48); ABG PH 7.531 (7.35-7.45); ABG PO2 80.7 MM HG (80-95); ABG TCO2 24.7 MMOL/L (23-27)
[2022-05-01] MEDS: MIDAZOLAM 100 MG in SODIUM CHLORIDE 0.9% 80 ML IV PRN ×4 (03:48→21:28)
[2022-05-01 04:48] LABS: Basophils % 0.4 % (0.0-0.8); Eosinophils # 0.1 10*3/uL (0.0-0.87); Eosinophils % 0.7 % (0.00-10.9); NRBC # 0.02 10*3/uL
[2022-05-01 05:11] LABS: Phosphorous 2.2 MG/DL (2.5-4.9)
[2022-05-01 05:16] LABS: Calcium 8.9 MG/DL (8.5-10.1); Osmolality,Calculated 313.4 MOS/KG (273-304); Potassium 3.4 MMOL/L (3.5-5.1)
[2022-05-01 05:31] LABS: Hematocrit 34.1 VOL% (35.7-47.0); Immature Granulocytes % 0.7 %; Immature Granulocytes Absolute 0.07 #; Lymphocytes # 2.5 10*3/uL (1.4-4.0); Lymphocytes % 24.3 % (21.3-54.2); Mean Corpuscular Volume 85.3 FL (87-102); Mean Platelet Volume 11.5 FL (9.6-12.0); Monocytes # 0.8 10*3/uL (0.11-0.8); Monocytes % 7.3 % (1.7-12.7); Neutrophils % 66.6 % (38.7-73.9); Platelet Count 317 T/CUMM (130-400); White Blood Count 10.4 T/CUMM (4-12)
[2022-05-01 05:32] LABS: Hemoglobin 9.9 GM/DL (12.0-16.0)
[2022-05-01] MEDS: POTASSIUM BICARB EFFERVESCENT 20 MEQ TAB.EFF PO PRN (06:00)
[2022-05-01] MEDS: amLODIPine 5 MG TABLET PO SCH (08:20)
[2022-05-01] MEDS: POTASSIUM CHLORIDE 20 MEQ TABLET PO PRN (08:20)
[2022-05-01] MEDS: FUROSEMIDE 40 MG/4 ML VIAL IV SCH (08:20)
[2022-05-01] MEDS: CLOPIDOGREL 75 MG TABLET PO SCH (08:20)
[2022-05-01] MEDS: ASPIRIN CHEW 81 MG TABLET PO SCH (08:20)
[2022-05-01] MEDS: INSULIN GLARGINE 100 UNIT/ML SUBCUT SCH ×2 (08:21→21:21)
[2022-05-01] MEDS: carvediloL 12.5 MG TABLET PO SCH ×2 (08:21→21:21)
[2022-05-01] MEDS: SPIRONOLACTONE 25 MG TABLET PO SCH (08:21)
[2022-05-01] MEDS: LEVOFLOXACIN 500 MG TABLET PO SCH (08:21)
[2022-05-01] MEDS: ENOXAPARIN 40 MG/0.4 ML SYRINGE SUBCUT SCH (08:21)
[2022-05-01] MEDS ORDERED: DEXMEDETOMIDINE 400 MCG in SODIUM CHLORIDE 0.9% 96 ML IV PRN (08:48)
[2022-05-01] MEDS: ROSUVASTATIN 20 MG TABLET PO SCH (21:21)
[2022-05-01] MEDS: QUEtiapine 25 MG TABLET PO SCH (21:21)
[2022-05-02] MEDS: INSULIN LISPRO 100 UNIT/ML SUBCUT SCH ×4 (00:19→18:02)
[2022-05-02] MEDS: ALBUTEROL/IPRATROPIUM 3 ML NEB RESP TX SCH ×4 (00:30→18:53)
[2022-05-02] MEDS: PANTOPRAZOLE 40 MG VIAL IV SCH (03:34)
[2022-05-02 04:18] LABS: Arterial Base Excess iSTAT 8 MMOL/L (-2.5-2.5); Arterial Bicarbonate iSTAT 31.5 MMOL/L (20-26); Arterial O2 Saturation iSTAT 97 % (95-100); Arterial PCO2 iSTAT 41 MM HG (35-48); Arterial PO2 iSTAT 84 MM HG (80-95); Arterial Total CO2 iSTAT 33 MMO/L (23-27); Arterial pH iSTAT 7.495 (7.35-7.45)
[2022-05-02 05:01] LABS: Calcium 9.4 MG/DL (8.5-10.1); Osmolality,Calculated 308.4 MOS/KG (273-304); Potassium 3.5 MMOL/L (3.5-5.1)
[2022-05-02 05:11] LABS: Ferritin 88.3 ng/mL (8-252)
[2022-05-02 05:12] LABS: Basophils # 0.1 10*3/uL (0.0-0.2); Basophils % 0.5 % (0.0-0.8); Eosinophils # 0.1 10*3/uL (0.0-0.87); Eosinophils % 0.7 % (0.00-10.9); Hemoglobin 9.8 GM/DL (12.0-16.0); Immature Granulocytes % 0.5 %; Immature Granulocytes Absolute 0.05 #; Lymphocytes # 3.1 10*3/uL (1.4-4.0); Lymphocytes % 30.7 % (21.3-54.2); Mean Corpuscular HGB Conc 28.9 GM/DL (32-36); Mean Corpuscular Volume 86.9 FL (87-102); Mean Platelet Volume 11.1 FL (9.6-12.0); Monocytes # 0.7 10*3/uL (0.11-0.8); Monocytes % 6.5 % (1.7-12.7); Neutrophils % 61.1 % (38.7-73.9); Platelet Count 328 T/CUMM (130-400); Red Cell Distribution Width 19.5 % (9.3-17.3); White Blood Count 10.2 T/CUMM (4-12)
[2022-05-02 05:14] LABS: Hematocrit 33.9 VOL% (35.7-47.0)
[2022-05-02 05:32] LABS: Free T4 (Free Thyroxine) 0.8 NG/DL (0.76-1.46); Thyroid Stimulating Hormone 1.66 uIU/ml (0.358-3.74)
[2022-05-02] MEDS: MIDAZOLAM 100 MG in SODIUM CHLORIDE 0.9% 80 ML IV PRN (06:30)
[2022-05-02] MEDS: CLOPIDOGREL 75 MG TABLET PO SCH (08:03)
[2022-05-02] MEDS: ASPIRIN CHEW 81 MG TABLET PO SCH (08:03)
[2022-05-02] MEDS: LEVOTHYROXINE 50 MCG TABLET PO SCH (08:03)
[2022-05-02] MEDS: POTASSIUM CHLORIDE 20 MEQ TABLET PO PRN (08:03)
[2022-05-02] MEDS: POTASSIUM BICARB EFFERVESCENT 20 MEQ TAB.EFF PO PRN (08:03)
[2022-05-02] MEDS: SPIRONOLACTONE 25 MG TABLET PO SCH (08:03)
[2022-05-02] MEDS: ENOXAPARIN 40 MG/0.4 ML SYRINGE SUBCUT SCH (08:03)
[2022-05-02] MEDS: carvediloL 12.5 MG TABLET PO SCH ×2 (08:03→20:34)
[2022-05-02] MEDS: CITALOPRAM 20 MG TABLET PO SCH (08:03)
[2022-05-02] MEDS: amLODIPine 5 MG TABLET PO SCH (08:03)
[2022-05-02] MEDS: INSULIN GLARGINE 100 UNIT/ML SUBCUT SCH ×2 (08:04→20:34)
[2022-05-02] MEDS ORDERED: MORPHINE 2 MG/1 ML SYRINGE IV PRN (08:32)
[2022-05-02] MEDS ORDERED: FUROSEMIDE 40 MG/4 ML VIAL IV SCH (09:00)
[2022-05-02] MEDS: FUROSEMIDE 40 MG/4 ML VIAL IV SCH (09:26)
[2022-05-02] MEDS: methylPREDNISolone SOD SUC 40 MG/1 ML VIAL IV SCH ×2 (09:26→17:34)
[2022-05-02] MEDS: hydrALAZINE 20 MG/1 ML VIAL IV PRN (12:09)
[2022-05-02] MEDS: ROSUVASTATIN 20 MG TABLET PO SCH (20:34)
[2022-05-02] MEDS: QUEtiapine 25 MG TABLET PO SCH (20:34)
[2022-05-03] MEDS: INSULIN LISPRO 100 UNIT/ML SUBCUT SCH ×5 (00:19→19:37)
[2022-05-03] MEDS: ALBUTEROL/IPRATROPIUM 3 ML NEB RESP TX SCH ×4 (00:27→20:39)
[2022-05-03] MEDS: methylPREDNISolone SOD SUC 40 MG/1 ML VIAL IV SCH ×3 (00:46→16:33)
[2022-05-03] MEDS: PANTOPRAZOLE 40 MG VIAL IV SCH (02:20)
[2022-05-03 04:19] LABS: Calcium 8.9 MG/DL (8.5-10.1); Osmolality,Calculated 313.8 MOS/KG (273-304); Potassium 4.1 MMOL/L (3.5-5.1)
[2022-05-03 04:23] LABS: Basophils % 0.2 % (0.0-0.8); Hemoglobin 9.7 GM/DL (12.0-16.0); Immature Granulocytes % 0.8 %; Immature Granulocytes Absolute 0.08 #; Lymphocytes # 1.5 10*3/uL (1.4-4.0); Lymphocytes % 15.5 % (21.3-54.2); Mean Corpuscular HGB Conc 29.1 GM/DL (32-36); Mean Corpuscular Volume 85.6 FL (87-102); Mean Platelet Volume 11.2 FL (9.6-12.0); Monocytes # 0.7 10*3/uL (0.11-0.8); Monocytes % 6.6 % (1.7-12.7); Neutrophils % 76.9 % (38.7-73.9); Platelet Count 329 T/CUMM (130-400); Red Blood Count 3.89 MC/CUMM (3.8-5.5); Red Cell Distribution Width 19.1 % (9.3-17.3); White Blood Count 9.9 T/CUMM (4-12)
[2022-05-03 04:24] LABS: Hematocrit 33.3 VOL% (35.7-47.0)
[2022-05-03 04:53] LABS: ABG Base Excess 4.3 MMOL/L (-2.5-2.5); ABG HCO3 28.3 MMOL/L (20-26); ABG Oxygen Saturation 97.7 % (95-100); ABG PCO2 41.6 MM HG (35-48); ABG PH 7.447 (7.35-7.45); ABG TCO2 26.1 MMOL/L (23-27)
[2022-05-03] MEDS: ENOXAPARIN 40 MG/0.4 ML SYRINGE SUBCUT SCH (08:48)
[2022-05-03] MEDS: INSULIN GLARGINE 100 UNIT/ML SUBCUT SCH ×2 (08:49→20:10)
[2022-05-03] MEDS: FUROSEMIDE 40 MG/4 ML VIAL IV SCH (08:49)
[2022-05-03] MEDS: CITALOPRAM 20 MG TABLET PO SCH (08:50)
[2022-05-03] MEDS: carvediloL 12.5 MG TABLET PO SCH ×2 (08:50→20:10)
[2022-05-03] MEDS: SPIRONOLACTONE 25 MG TABLET PO SCH (08:50)
[2022-05-03] MEDS: ASPIRIN CHEW 81 MG TABLET PO SCH (08:51)
[2022-05-03] MEDS: CLOPIDOGREL 75 MG TABLET PO SCH (08:51)
[2022-05-03] MEDS: amLODIPine 10 MG TABLET PO SCH (08:51)
[2022-05-03] MEDS: LEVOTHYROXINE 50 MCG TABLET PO SCH (08:51)
[2022-05-03] MEDS ORDERED: INSULIN LISPRO 100 UNIT/ML SUBCUT SCH (10:30)
[2022-05-03] MEDS: QUEtiapine 25 MG TABLET PO SCH (20:10)
[2022-05-03] MEDS: ROSUVASTATIN 20 MG TABLET PO SCH (20:12)
[2022-05-04] MEDS: methylPREDNISolone SOD SUC 40 MG/1 ML VIAL IV SCH ×3 (00:03→20:27)
[2022-05-04] MEDS: INSULIN LISPRO 100 UNIT/ML SUBCUT SCH ×6 (00:15→20:25)
[2022-05-04] MEDS: ALBUTEROL/IPRATROPIUM 3 ML NEB RESP TX SCH ×4 (00:25→19:35)
[2022-05-04] MEDS: hydrALAZINE 20 MG/1 ML VIAL IV PRN (01:23)
[2022-05-04 03:28] LABS: ABG Base Excess 4.6 MMOL/L (-2.5-2.5); ABG HCO3 28.5 MMOL/L (20-26); ABG Oxygen Saturation 96.6 % (95-100); ABG PCO2 45.4 MM HG (35-48); ABG PH 7.423 (7.35-7.45); ABG TCO2 26.8 MMOL/L (23-27)
[2022-05-04] MEDS: PANTOPRAZOLE 40 MG VIAL IV SCH (03:33)
[2022-05-04] MEDS: LEVOTHYROXINE 50 MCG TABLET PO SCH (06:30)
[2022-05-04 06:41] LABS: Calcium 9.5 MG/DL (8.5-10.1); Potassium 4.3 MMOL/L (3.5-5.1)
[2022-05-04 06:58] LABS: Basophils % 0.1 % (0.0-0.8); Lymphocytes # 1.2 10*3/uL (1.4-4.0); Mean Platelet Volume 11.9 FL (9.6-12.0)
[2022-05-04 07:19] LABS: Eosinophils % 0.1 % (0.00-10.9); Hematocrit 35.1 VOL% (35.7-47.0); Immature Granulocytes % 0.3 %; Immature Granulocytes Absolute 0.03 #; Lymphocytes % 13.1 % (21.3-54.2); Mean Corpuscular HGB Conc 29.6 GM/DL (32-36); Mean Corpuscular Volume 84.2 FL (87-102); Monocytes # 0.4 10*3/uL (0.11-0.8); Monocytes % 3.8 % (1.7-12.7); Neutrophils % 82.6 % (38.7-73.9); Platelet Count 344 T/CUMM (130-400); Red Blood Count 4.17 MC/CUMM (3.8-5.5); Red Cell Distribution Width 19.2 % (9.3-17.3); White Blood Count 9.1 T/CUMM (4-12)
[2022-05-04 07:20] LABS: Hemoglobin 10.4 GM/DL (12.0-16.0)
[2022-05-04] MEDS: CITALOPRAM 20 MG TABLET PO SCH (08:47)
[2022-05-04] MEDS: CLOPIDOGREL 75 MG TABLET PO SCH (08:47)
[2022-05-04] MEDS: amLODIPine 10 MG TABLET PO SCH (08:47)
[2022-05-04] MEDS: ENOXAPARIN 40 MG/0.4 ML SYRINGE SUBCUT SCH (08:47)
[2022-05-04] MEDS: LOSARTAN 25 MG TABLET PO SCH (08:47)
[2022-05-04] MEDS: ASPIRIN CHEW 81 MG TABLET PO SCH (08:47)
[2022-05-04] MEDS: carvediloL 12.5 MG TABLET PO SCH ×2 (08:47→20:24)
[2022-05-04] MEDS: INSULIN GLARGINE 100 UNIT/ML SUBCUT SCH ×2 (08:49→20:25)
[2022-05-04] MEDS: INSULIN ASPART PROTAMINE/ASPART 70/30 100 UNIT/ML SUBCUT SCH ×2 (13:20→16:40)
[2022-05-04 18:52] LABS: Glucose,Urine (UA) Negative (Negative); Protein,Urine 100 mg/dL (Negative); Urine Appearance Cloudy (Clear); Urine Color Yellow (Yellow); Urine Specific Gravity 1.025 (1.001-1.035); Urine pH 5.5 (4.5-8.0)
[2022-05-04 18:53] LABS: Bilirubin,Urine Negative (Negative); Blood, Urine Large mg/dL (Negative); Ketones,Urine Negative (Negative); Nitrite,Urine Negative (Negative); Urine Urobilinogen 0.2 eU/dL (<2.0)
[2022-05-04 18:57] LABS: Mucus,Urine Occasional /LPF (Occasional); RBC,Urine 822 /HPF (0-4); Squamous Epithelial Cell,Urine Occasional /HPF (0-10)
[2022-05-04] MEDS: ROSUVASTATIN 20 MG TABLET PO SCH (20:24)
[2022-05-05] MEDS: INSULIN LISPRO 100 UNIT/ML SUBCUT SCH ×6 (00:05→21:04)
[2022-05-05 03:42] LABS: Arterial Base Excess iSTAT 5 MMOL/L (-2.5-2.5); Arterial Bicarbonate iSTAT 31.7 MMOL/L (20-26); Arterial O2 Saturation iSTAT 96 % (95-100); Arterial PCO2 iSTAT 53 MM HG (35-48); Arterial PO2 iSTAT 84 MM HG (80-95); Arterial Total CO2 iSTAT 33 MMO/L (23-27); Arterial pH iSTAT 7.382 (7.35-7.45)
[2022-05-05] MEDS: PANTOPRAZOLE 40 MG VIAL IV SCH (04:01)
[2022-05-05] MEDS: ACETAMINOPHEN 325 MG TABLET PO PRN (04:35)
[2022-05-05 06:42] LABS: Calcium 9.6 MG/DL (8.5-10.1); Osmolality,Calculated 308.7 MOS/KG (273-304); Potassium 3.8 MMOL/L (3.5-5.1)
[2022-05-05] MEDS: LEVOTHYROXINE 50 MCG TABLET PO SCH (06:47)
[2022-05-05 06:48] LABS: Hematocrit 36.5 VOL% (35.7-47.0); Hemoglobin 10.6 GM/DL (12.0-16.0); Immature Granulocytes % 0.4 %; Immature Granulocytes Absolute 0.03 #; Lymphocytes # 1.1 10*3/uL (1.4-4.0); Mean Corpuscular Volume 86.5 FL (87-102); Mean Platelet Volume 11.2 FL (9.6-12.0); Monocytes # 0.6 10*3/uL (0.11-0.8); Monocytes % 7.5 % (1.7-12.7); Neutrophils % 77.1 % (38.7-73.9); Platelet Count 362 T/CUMM (130-400); Red Blood Count 4.22 MC/CUMM (3.8-5.5); Red Cell Distribution Width 18.9 % (9.3-17.3); White Blood Count 7.6 T/CUMM (4-12)
[2022-05-05] MEDS: ALBUTEROL/IPRATROPIUM 3 ML NEB RESP TX SCH ×4 (08:32→19:20)
[2022-05-05] MEDS: INSULIN ASPART PROTAMINE/ASPART 70/30 100 UNIT/ML SUBCUT SCH ×3 (08:35→17:02)
[2022-05-05] MEDS: INSULIN GLARGINE 100 UNIT/ML SUBCUT SCH ×2 (09:16→22:13)
[2022-05-05] MEDS: CHOLECALCIFEROL 1,000 UNIT TABLET PO SCH (09:17)
[2022-05-05] MEDS: methylPREDNISolone SOD SUC 40 MG/1 ML VIAL IV SCH ×2 (09:17→22:12)
[2022-05-05] MEDS: CITALOPRAM 20 MG TABLET PO SCH (09:17)
[2022-05-05] MEDS: ASPIRIN CHEW 81 MG TABLET PO SCH (09:17)
[2022-05-05] MEDS: LOSARTAN 25 MG TABLET PO SCH (09:17)
[2022-05-05] MEDS: carvediloL 12.5 MG TABLET PO SCH ×2 (09:17→22:12)
[2022-05-05] MEDS: ENOXAPARIN 40 MG/0.4 ML SYRINGE SUBCUT SCH (09:17)
[2022-05-05] MEDS: amLODIPine 10 MG TABLET PO SCH (09:18)
[2022-05-05] MEDS: POTASSIUM CHLORIDE 20 MEQ TABLET PO PRN (09:18)
[2022-05-05] MEDS: CLOPIDOGREL 75 MG TABLET PO SCH (09:18)
[2022-05-05] MEDS: hydrALAZINE 20 MG/1 ML VIAL IV PRN (11:45)
[2022-05-05] MEDS ORDERED: LOPERAMIDE 2 MG CAPSULE PO PRN (14:56)
[2022-05-05] MEDS: ROSUVASTATIN 20 MG TABLET PO SCH (22:12)
[2022-05-06] MEDS: ALBUTEROL/IPRATROPIUM 3 ML NEB RESP TX SCH ×4 (00:27→20:10)
[2022-05-06] MEDS: INSULIN LISPRO 100 UNIT/ML SUBCUT SCH ×7 (00:30→23:43)
[2022-05-06] MEDS: PANTOPRAZOLE 40 MG VIAL IV SCH (03:05)
[2022-05-06 06:13] LABS: Hematocrit 36.9 VOL% (35.7-47.0); Hemoglobin 11.1 GM/DL (12.0-16.0); Immature Granulocytes % 0.5 %; Immature Granulocytes Absolute 0.03 #; Lymphocytes % 15.2 % (21.3-54.2); Mean Corpuscular HGB Conc 30.1 GM/DL (32-36); Mean Corpuscular Volume 84.1 FL (87-102); Mean Platelet Volume 11.9 FL (9.6-12.0); Monocytes # 0.4 10*3/uL (0.11-0.8); Neutrophils % 78.3 % (38.7-73.9); Platelet Count 367 T/CUMM (130-400); Red Blood Count 4.39 MC/CUMM (3.8-5.5); Red Cell Distribution Width 18.6 % (9.3-17.3); White Blood Count 6.4 T/CUMM (4-12)
[2022-05-06 06:19] LABS: Calcium 9.6 MG/DL (8.5-10.1); Potassium 4.1 MMOL/L (3.5-5.1)
[2022-05-06 07:08] LABS: Platelet Estimate Normal
[2022-05-06] MEDS: INSULIN GLARGINE 100 UNIT/ML SUBCUT SCH ×2 (10:17→21:22)
[2022-05-06] MEDS: ENOXAPARIN 40 MG/0.4 ML SYRINGE SUBCUT SCH (10:18)
[2022-05-06] MEDS: INSULIN ASPART PROTAMINE/ASPART 70/30 100 UNIT/ML SUBCUT SCH ×3 (10:18→16:30)
[2022-05-06] MEDS: LEVOTHYROXINE 50 MCG TABLET PO SCH (10:19)
[2022-05-06] MEDS: ASPIRIN CHEW 81 MG TABLET PO SCH (10:19)
[2022-05-06] MEDS: CITALOPRAM 20 MG TABLET PO SCH (10:19)
[2022-05-06] MEDS: CLOPIDOGREL 75 MG TABLET PO SCH (10:19)
[2022-05-06] MEDS: amLODIPine 10 MG TABLET PO SCH (10:19)
[2022-05-06] MEDS: CHOLECALCIFEROL 1,000 UNIT TABLET PO SCH (10:19)
[2022-05-06] MEDS: LOSARTAN 25 MG TABLET PO SCH (10:19)
[2022-05-06] MEDS: carvediloL 12.5 MG TABLET PO SCH ×2 (10:19→21:22)
[2022-05-06] MEDS: methylPREDNISolone SOD SUC 40 MG/1 ML VIAL IV SCH ×2 (10:32→21:18)
[2022-05-06] MEDS: ROSUVASTATIN 20 MG TABLET PO SCH (21:22)
[2022-05-07] MEDS: ALBUTEROL/IPRATROPIUM 3 ML NEB RESP TX SCH ×4 (00:20→19:16)
[2022-05-07] MEDS: INSULIN LISPRO 100 UNIT/ML SUBCUT SCH ×5 (04:33→21:11)
[2022-05-07] MEDS: PANTOPRAZOLE 40 MG VIAL IV SCH (04:36)
[2022-05-07 05:37] LABS: Calcium 9.3 MG/DL (8.5-10.1); Osmolality,Calculated 292.5 MOS/KG (273-304); Potassium 4.1 MMOL/L (3.5-5.1)
[2022-05-07 06:17] LABS: Basophils % 0.1 % (0.0-0.8); Hematocrit 39.2 VOL% (35.7-47.0); Hemoglobin 11.8 GM/DL (12.0-16.0); Immature Granulocytes % 0.4 %; Immature Granulocytes Absolute 0.03 #; Lymphocytes # 1.3 10*3/uL (1.4-4.0); Lymphocytes % 19.4 % (21.3-54.2); Mean Corpuscular HGB Conc 30.1 GM/DL (32-36); Mean Corpuscular Volume 83.2 FL (87-102); Mean Platelet Volume 12.3 FL (9.6-12.0); Monocytes # 0.5 10*3/uL (0.11-0.8); Monocytes % 7.9 % (1.7-12.7); Neutrophils % 72.2 % (38.7-73.9); Platelet Count 388 T/CUMM (130-400); Red Blood Count 4.71 MC/CUMM (3.8-5.5); Red Cell Distribution Width 18.4 % (9.3-17.3); White Blood Count 6.7 T/CUMM (4-12)
[2022-05-07 07:11] LABS: Hypochromia 2+
[2022-05-07 07:12] LABS: Platelet Estimate Normal; Target Cells Few; Tear Drop Cells Few
[2022-05-07] MEDS: INSULIN GLARGINE 100 UNIT/ML SUBCUT SCH ×2 (09:33→21:11)
[2022-05-07] MEDS: INSULIN ASPART PROTAMINE/ASPART 70/30 100 UNIT/ML SUBCUT SCH ×3 (09:33→18:09)
[2022-05-07] MEDS: ASPIRIN CHEW 81 MG TABLET PO SCH (09:34)
[2022-05-07] MEDS: ENOXAPARIN 40 MG/0.4 ML SYRINGE SUBCUT SCH (09:34)
[2022-05-07] MEDS: CITALOPRAM 20 MG TABLET PO SCH (09:34)
[2022-05-07] MEDS: POTASSIUM CHLORIDE 20 MEQ TABLET PO PRN (09:35)
[2022-05-07] MEDS: CHOLECALCIFEROL 1,000 UNIT TABLET PO SCH (09:35)
[2022-05-07] MEDS: LEVOTHYROXINE 50 MCG TABLET PO SCH (09:35)
[2022-05-07] MEDS: POTASSIUM BICARB EFFERVESCENT 20 MEQ TAB.EFF PO PRN (09:35)
[2022-05-07] MEDS: CLOPIDOGREL 75 MG TABLET PO SCH (09:36)
[2022-05-07] MEDS: LOSARTAN 25 MG TABLET PO SCH (09:36)
[2022-05-07] MEDS: FERROUS SULFATE 325 MG TABLET PO SCH ×2 (09:36→21:13)
[2022-05-07] MEDS: methylPREDNISolone SOD SUC 40 MG/1 ML VIAL IV SCH ×2 (09:37→21:09)
[2022-05-07] MEDS: carvediloL 12.5 MG TABLET PO SCH ×2 (09:37→21:12)
[2022-05-07] MEDS: amLODIPine 10 MG TABLET PO SCH (09:37)
[2022-05-07] MEDS ORDERED: GLUCAGON 1 MG VIAL IM PRN (12:24)
[2022-05-07] MEDS ORDERED: DEXTROSE 10% 250 ML BAG IV PRN (12:27)
[2022-05-07] MEDS: SODIUM CHLORIDE 0.9% 1,000 ML IV SCH (18:08)
[2022-05-07] MEDS: ROSUVASTATIN 20 MG TABLET PO SCH (21:13)
[2022-05-08] MEDS: ALBUTEROL/IPRATROPIUM 3 ML NEB RESP TX SCH ×5 (00:10→19:53)
[2022-05-08] MEDS: INSULIN LISPRO 100 UNIT/ML SUBCUT SCH ×6 (01:07→22:02)
[2022-05-08] MEDS: PANTOPRAZOLE 40 MG VIAL IV SCH (04:18)
[2022-05-08 05:04] LABS: Hematocrit 41.5 VOL% (35.7-47.0); Hemoglobin 12.3 GM/DL (12.0-16.0); Immature Granulocytes % 0.4 %; Immature Granulocytes Absolute 0.03 #; Lymphocytes # 1.2 10*3/uL (1.4-4.0); Lymphocytes % 15.1 % (21.3-54.2); Mean Corpuscular HGB Conc 29.6 GM/DL (32-36); Mean Corpuscular Volume 84.5 FL (87-102); Monocytes # 0.4 10*3/uL (0.11-0.8); Monocytes % 5.7 % (1.7-12.7); Neutrophils % 78.8 % (38.7-73.9); Platelet Count 437 T/CUMM (130-400); Red Blood Count 4.91 MC/CUMM (3.8-5.5); Red Cell Distribution Width 18.5 % (9.3-17.3); White Blood Count 7.8 T/CUMM (4-12)
[2022-05-08 05:25] LABS: Osmolality,Calculated 288.5 MOS/KG (273-304); Potassium 4.5 MMOL/L (3.5-5.1)
[2022-05-08] MEDS: SODIUM CHLORIDE 0.9% 1,000 ML IV SCH (09:37)
[2022-05-08] MEDS: ENOXAPARIN 40 MG/0.4 ML SYRINGE SUBCUT SCH (09:38)
[2022-05-08] MEDS: INSULIN ASPART PROTAMINE/ASPART 70/30 100 UNIT/ML SUBCUT SCH ×3 (09:38→16:57)
[2022-05-08] MEDS: INSULIN GLARGINE 100 UNIT/ML SUBCUT SCH ×2 (09:39→22:01)
[2022-05-08] MEDS: methylPREDNISolone SOD SUC 40 MG/1 ML VIAL IV SCH ×2 (09:42→22:01)
[2022-05-08] MEDS: LEVOTHYROXINE 50 MCG TABLET PO SCH (15:07)
[2022-05-08] MEDS: CHOLECALCIFEROL 1,000 UNIT TABLET PO SCH (15:07)
[2022-05-08] MEDS: ASPIRIN CHEW 81 MG TABLET PO SCH (15:07)
[2022-05-08] MEDS: LOSARTAN 25 MG TABLET PO SCH (15:07)
[2022-05-08] MEDS: amLODIPine 10 MG TABLET PO SCH (15:07)
[2022-05-08] MEDS: FERROUS SULFATE 325 MG TABLET PO SCH ×2 (15:07→22:01)
[2022-05-08] MEDS: CLOPIDOGREL 75 MG TABLET PO SCH (15:07)
[2022-05-08] MEDS: CITALOPRAM 20 MG TABLET PO SCH (15:07)
[2022-05-08] MEDS: carvediloL 12.5 MG TABLET PO SCH ×2 (15:09→22:01)
[2022-05-08] MEDS: ROSUVASTATIN 20 MG TABLET PO SCH (22:01)
[2022-05-09] MEDS: ALBUTEROL/IPRATROPIUM 3 ML NEB RESP TX SCH ×4 (00:30→18:54)
[2022-05-09] MEDS: INSULIN LISPRO 100 UNIT/ML SUBCUT SCH ×7 (00:41→23:28)
[2022-05-09] MEDS: PANTOPRAZOLE 40 MG VIAL IV SCH (04:07)
[2022-05-09 05:58] LABS: Calcium 9.4 MG/DL (8.5-10.1); Osmolality,Calculated 287.8 MOS/KG (273-304); Potassium 4.4 MMOL/L (3.5-5.1)
[2022-05-09 05:59] LABS: Basophils % 0.1 % (0.0-0.8); Hematocrit 39.3 VOL% (35.7-47.0); Hemoglobin 11.8 GM/DL (12.0-16.0); Immature Granulocytes % 0.6 %; Immature Granulocytes Absolute 0.06 #; Lymphocytes # 1.2 10*3/uL (1.4-4.0); Lymphocytes % 11.4 % (21.3-54.2); Mean Corpuscular Volume 83.1 FL (87-102); Mean Platelet Volume 12.4 FL (9.6-12.0); Monocytes # 0.7 10*3/uL (0.11-0.8); Monocytes % 6.2 % (1.7-12.7); Neutrophils % 81.7 % (38.7-73.9); Platelet Count 394 T/CUMM (130-400); Red Blood Count 4.73 MC/CUMM (3.8-5.5); Red Cell Distribution Width 18.3 % (9.3-17.3); White Blood Count 10.8 T/CUMM (4-12)
[2022-05-09] MEDS: ASPIRIN CHEW 81 MG TABLET PO SCH (09:10)
[2022-05-09] MEDS: CITALOPRAM 20 MG TABLET PO SCH (09:11)
[2022-05-09] MEDS: carvediloL 12.5 MG TABLET PO SCH ×2 (09:11→21:13)
[2022-05-09] MEDS: LEVOTHYROXINE 50 MCG TABLET PO SCH (09:11)
[2022-05-09] MEDS: CLOPIDOGREL 75 MG TABLET PO SCH (09:11)
[2022-05-09] MEDS: LOSARTAN 25 MG TABLET PO SCH (09:11)
[2022-05-09] MEDS: ENOXAPARIN 40 MG/0.4 ML SYRINGE SUBCUT SCH (09:11)
[2022-05-09] MEDS: predniSONE 20 MG TABLET PO SCH (09:11)
[2022-05-09] MEDS: FERROUS SULFATE 325 MG TABLET PO SCH ×2 (09:11→21:13)
[2022-05-09] MEDS: CHOLECALCIFEROL 1,000 UNIT TABLET PO SCH (09:11)
[2022-05-09] MEDS: amLODIPine 10 MG TABLET PO SCH (09:11)
[2022-05-09] MEDS: INSULIN ASPART PROTAMINE/ASPART 70/30 100 UNIT/ML SUBCUT SCH ×3 (09:12→17:41)
[2022-05-09] MEDS: SODIUM CHLORIDE 0.9% 1,000 ML IV SCH ×2 (12:53→14:08)
[2022-05-09] MEDS: INSULIN GLARGINE 100 UNIT/ML SUBCUT SCH ×2 (13:21→21:13)
[2022-05-09] MEDS: ROSUVASTATIN 20 MG TABLET PO SCH (21:13)
[2022-05-10] MEDS: ALBUTEROL/IPRATROPIUM 3 ML NEB RESP TX SCH ×2 (01:20→07:08)
[2022-05-10] MEDS: SODIUM CHLORIDE 0.9% 1,000 ML IV SCH (02:57)
[2022-05-10] MEDS: INSULIN LISPRO 100 UNIT/ML SUBCUT SCH ×3 (04:20→12:00)
[2022-05-10] MEDS: PANTOPRAZOLE 40 MG VIAL IV SCH (04:25)
[2022-05-10 05:37] LABS: Calcium 8.9 MG/DL (8.5-10.1); Osmolality,Calculated 284.4 MOS/KG (273-304); Potassium 3.5 MMOL/L (3.5-5.1)
[2022-05-10 05:49] LABS: Basophils % 0.1 % (0.0-0.8); Eosinophils % 0.3 % (0.00-10.9); Hematocrit 38.4 VOL% (35.7-47.0); Hemoglobin 11.5 GM/DL (12.0-16.0); Immature Granulocytes % 0.4 %; Immature Granulocytes Absolute 0.04 #; Lymphocytes # 3.2 10*3/uL (1.4-4.0); Mean Corpuscular HGB Conc 29.9 GM/DL (32-36); Mean Corpuscular Volume 84.2 FL (87-102); Mean Platelet Volume 11.9 FL (9.6-12.0); Monocytes # 0.8 10*3/uL (0.11-0.8); Monocytes % 8.3 % (1.7-12.7); Neutrophils % 57.9 % (38.7-73.9); Platelet Count 389 T/CUMM (130-400); Red Blood Count 4.56 MC/CUMM (3.8-5.5); Red Cell Distribution Width 18.8 % (9.3-17.3); White Blood Count 9.6 T/CUMM (4-12)
[2022-05-10] MEDS: LEVOTHYROXINE 50 MCG TABLET PO SCH (09:14)
[2022-05-10] MEDS: INSULIN ASPART PROTAMINE/ASPART 70/30 100 UNIT/ML SUBCUT SCH ×2 (09:14→12:29)
[2022-05-10] MEDS: CITALOPRAM 20 MG TABLET PO SCH (09:15)
[2022-05-10] MEDS: carvediloL 12.5 MG TABLET PO SCH (09:15)
[2022-05-10] MEDS: LOSARTAN 25 MG TABLET PO SCH (09:16)
[2022-05-10] MEDS: INSULIN GLARGINE 100 UNIT/ML SUBCUT SCH (09:16)
[2022-05-10] MEDS: FERROUS SULFATE 325 MG TABLET PO SCH (09:16)
[2022-05-10] MEDS: predniSONE 20 MG TABLET PO SCH (09:17)
[2022-05-10] MEDS: CHOLECALCIFEROL 1,000 UNIT TABLET PO SCH (09:17)
[2022-05-10] MEDS: amLODIPine 10 MG TABLET PO SCH (09:17)
[2022-05-10 11:58] VITALS: BP 147/65
== END 2022-05-10 13:02 | DRG 720 ==
LOC: SUATTDRO 04-22 01:52 → N.ICU 04-22 01:52 → N.5E 05-05 15:09
PROVIDERS: ADMIT Internal Medicine; ATTEND Internal Medicine